=== PATIENT | female | born 1955 | race Caucasian/White ===

== ENCOUNTER 2024-10-13 06:31 | Day surgery (SDC) | payer OTHER ==
[~2024-10-13] VITALS: Ht 160 cm; Wt 77.3 kg
[2024-10-13] MEDS ORDERED: BENZOCAINE 20% 50 MCG/SPRAY 57 GM TP ONE (06:32)
[2024-10-13] MEDS ORDERED: LIDOCAINE 4% 50 ML SOLUTION TP ONE (06:32)
[2024-10-13] MEDS ORDERED: LIDOCAINE 2% 11 ML JELLY TP ONE (06:32)
[2024-10-13] MEDS ORDERED: ALBUTEROL SULFATE 2.5 MG/0.5 ML NEB SOLUTION NEB ONE (06:32)
[2024-10-13] MEDS ORDERED: FAMO40TA7 PO (07:00)
[2024-10-13] MEDS ORDERED: FLUT12AE3 IH (07:00)
[2024-10-13] MEDS ORDERED: TRAZ-257 PO (07:00)
[2024-10-13] MEDS ORDERED: PRED-729 PO (07:00)
[2024-10-13] MEDS ORDERED: MONT-40 PO (07:00)
[2024-10-13] MEDS ORDERED: FEXO-236 PO (07:00)
[2024-10-13] MEDS ORDERED: FAMO20 PO (07:00)
[2024-10-13] MEDS ORDERED: METF-1211 PO (07:00)
[2024-10-13] MEDS ORDERED: AMLO10TA55 PO (07:00)
[2024-10-13] MEDS ORDERED: CHLO25TA3 PO (07:00)
[2024-10-13] MEDS ORDERED: ALBU18HF12 IH (07:00)
[2024-10-13] MEDS ORDERED: SODIUM CHLORIDE 0.9% 1,000 ML ONE (07:10)
[2024-10-13] MEDS ORDERED: FentaNYL CITRATE PF 100 MCG/2 ML VIAL ONE (07:38)
[2024-10-13] MEDS ORDERED: MIDAZOLAM HCL 2 MG/2 ML VIAL ONE (07:38)
[2024-10-13] MEDS: SODIUM CHLORIDE 0.9% 1,000 ML IV ONE (07:56)
[2024-10-13 08:06] LABS: GLUCOMETER DEV NAME(LOC) SDS.; GLUCOSE,POINT OF CARE 128 MG/DL (70-110)
[2024-10-13 09:55] VITALS: PULSE 78; RESP 20; O2SAT 97
[2024-10-13] MEDS ORDERED: MethylPREDNISolone SOD SUCC 125 MG/2 ML VIAL ONE (10:25)
[2024-10-13] MEDS: MethylPREDNISolone SOD SUCC 125 MG/2 ML VIAL IVP ONE (10:27)
== END 2024-10-13 13:00 | disposition home or self-care (01) ==
LOC: SURGERY 06:31
PROVIDERS: ATTEND Internal Medicine Critical Care Medicine
DX: R05.3 Chronic cough (principal); J38.4 Edema of larynx; B37.0 Candidal stomatitis; I10 Essential (primary) hypertension; E11.9 Type 2 diabetes mellitus without complications; R04.2 Hemoptysis; J44.9 Chronic obstructive pulmonary disease, unspecified; Z79.899 Other long term (current) drug therapy; Z88.8 Allergy status to other drugs, medicaments and biological substances; Z90.710 Acquired absence of both cervix and uterus; Z98.890 Other specified postprocedural states; Z79.84 Long term (current) use of oral hypoglycemic drugs
CPT/HCPCS: 31623; 82962; 87206; 87101; 87220; 87070; 88108; 31624; 71045; 87015; J3010; J2250; J2919; J7030; J7613; Z7610